=== PATIENT | female | born 1960 | race Caucasian/White ===

== ENCOUNTER 2019-05-08 11:47 | Emergency (ER) | payer BC ==
[2019-05-08] MEDS ORDERED: Ketorolac 60 MG/2 ML SDV IM ONE (12:19)
--- NOTE | 2019-05-08 12:44 | EDM.PDOC ---
ED HPI GENERAL MEDICAL PROBLEM - General Chief Complaint: Back Pain or Injury Stated Complaint: LOWER BACK PAIN Time Seen by Provider: 05/08/19 11:50 Source of Information: Reports: Patient History Limitations: Reports: No Limitations - History of Present Illness INITIAL COMMENTS - FREE TEXT/NARRATIVE: HISTORY AND PHYSICAL: History of present illness: Patient is a 58-year-old female who presents to the ED today with concern of low back pain that is been ongoing over the past month. Patient states that she has an appointment this coming week with her primary care provider, Dr. Fontenot for her back. Patient denies any trauma or injury to the back or any loss or retention of bowel and bladder function or saddle anesthesia. Patient states that she has gone to the chiropractor on several occasions which is provided some relief but is not kept the pain away for her. Patient states she's been taking aspirin but has not had relief of her symptoms. Patient states she did take one dose of her 's muscle relaxer which provided mild relief for her. Patient denies any other symptoms or concerns at this time. Patient states she has a history of hypertension but denies any other health history. Patient denies fever, chills, chest pain, shortness of breath, or cough. Denies headache, neck stiff ness, change in vision, syncope, or near syncope. Denies nausea, vomiting, abdominal pain, diarrhea, constipation, or dysuria. Has not noted any blood in urine or stool. Patient has been eating and drinking appropriately. Review of systems: As per history of present illness and below otherwise all systems reviewed and negative. Past medical history: As per history of present illness and as reviewed below otherwise noncontributory. Surgical history: As per history of present illness and as reviewed below otherwise noncontributory. Social history: See social history for further information Family history: As per history of present illness and as reviewed below otherwise noncontributory. Physical exam: General: Patient is alert, oriented, and in no acute distress. Patient sitting comfortably on exam table. HEENT: Atraumatic, normocephalic, pupils equal and reactive bilaterally, negative for conjunctival pallor or scleral icterus, mucous membranes moist, TMs normal bilaterally, throat clear, neck supple, nontender, trachea midline. No drooling or trismus noted. No meningeal signs. No hot potato voice noted. Lungs: Clear to auscultation, breath sounds equal bilaterally, chest nontender. Heart: S1S2, regular rate and rhythm without overt murmur Abdomen: Soft, nondistended, nontender. Negative for masses or hepatosplenomegaly. Negative for costovertebral tenderness. Pelvis: Stable nontender. Genitourinary: Deferred. Rectal: Deferred. Skin: Intact, warm, dry. No lesions or rashes noted. Extremities: Atraumatic, negative for cords or calf pain. Neurovascular unremarkable. SLR intact bilaterally. Patellar reflex intact bilaterally. Tip toe/heel gait intact. No obvious deformity of the complete spine. No step-offs, crepitus, or point tenderness to palpation of the spinous process of complete spine. Patient does have moderate pain with palpation of the paraspinous muscles surrounding the lumbar spine. Patient does have full range of motion of complete spine but does have moderate pain with range of motion of the lumbar spine. Neuro: Awake, alert, oriented. Cranial nerves II through XII unremarkable. Cerebellum unremarkable. Motor and sensory unremarkable throughout. Exam nonfocal. Notes: Discussed the importance for follow-up with a primary care provider. Voices understanding and is agreeable to plan of care. Denies any further questions or concerns at this time. Diagnostics: Lumbar x-ray Therapeutics: Toradol, Norflex Prescription: Diclofenac, Flexeril Impression: Low back pain Plan: 1. Rest, heat the affected area. You can apply heat 15 minutes on, 15 minutes off. 2. Tylenol as directed for pain management or discomfort. Take medication as prescribed. 3. Follow up with the primary care provider as discussed. Return to the ED as needed and as discussed. Definitive disposition and diagnosis as appropriate pending reevaluation and review of above. 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 ED EXAM, GENERAL - Physical Exam Exam: See Below (See dictation) Course - Vital Signs Last Recorded V/S: Last Vital Signs Temp 97.0 F 05/08/19 11:57 Pulse 110 H 05/08/19 11:57 Resp 18 05/08/19 11:57 BP 124/91 H 05/08/19 11:57 Pulse Ox 95 05/08/19 11:57 - Orders/Labs/Meds Meds: Medications Discontinued Medications Generic Name Dose Route Start Last Admin Trade Name Freq PRN Reason Stop Dose Admin Ketorolac Tromethamine 60 mg 05/08/19 12:19 05/08/19 12:29 Toradol IM 05/08/19 12:20 60 mg ONETIME ONE Administration Orphenadrine Citrate 60 mg 05/08/19 12:19 05/08/19 12:29 Norflex IM 05/08/19 12:20 60 mg NOW STA Administration Departure - Departure Time of Disposition: 13:00 Disposition: Home, Self-Care 01 Clinical Impression: Low back pain Qualifiers: Chronicity: unspecified Back pain laterality: unspecified Sciatica presence: without sciatica Qualified Code(s): M54.5 - Low back pain - Discharge Information Prescriptions: Cyclobenzaprine [Flexeril] 10 mg PO TID PRN #12 tab PRN Reason: Spasms Diclofenac Sodium [Voltaren] 75 mg PO BIDMEALS PRN #15 tab.cr PRN Reason: Pain Referrals: PCP,Unknown [Primary Care Provider] - Forms: ED Department Discharge Additional Instructions: The following information is given to patients seen in the emergency department who are being discharged to home. This information is to outline your options for follow-up care. We provide all patients seen in our emergency department with a follow-up referral. The need for follow-up, as well as the timing and circumstances, are variable depending upon the specifics of your emergency department visit. If you don't have a primary care physician on staff, we will provide you with a referral. We always advise you to contact your personal physician following an emergency department visit to inform them of the circumstance of the visit and for follow-up with them and/or the need for any referrals to a consulting specialist. The emergency department will also refer you to a specialist when appropriate. This referral assures that you have the opportunity for follow-up care with a specialist. All of these measure are taken in an effort to provide you with optimal care, which includes your follow-up. Under all circumstances we always encourage you to contact your private physician who remains a resource for coordinating your care. When calling for follow-up care, please make the office aware that this follow-up is from your recent emergency room visit. If for any reason you are refused follow-up, please contact the [facility] Emergency Department at and asked to speak to the emergency department charge nurse. [facility] [address] [place] [address] [address] 1. Apply warm compresses to the affected eye 5 times a day for the next 5 days. Apply medication as prescribed. 2. You can alternate ibuprofen and Tylenol as directed for pain and discomfort. 3. Follow-up with the career placement specialist and your primary care provider as discussed. Return to the ED as needed and as discussed.
--- NOTE | 2019-05-08 12:56 | CR ---
INDICATION: pain COMPARISON: None. FINDINGS: Three views of the lumbosacral spine demonstrate 5 non rib-bearing lumbar type vertebral bodies. Normal vertebral body heights and alignment. There is no evidence of acute fracture or subluxation. Mild levoconvex curvature. Moderate degenerative disc disease at L5-S1 with disc space narrowing. Sacroiliac joints are intact. Surgical clips in the right upper quadrant consistent with prior cholecystectomy. IMPRESSION: 1. No acute osseous abnormality. 2. Moderate degenerative disc disease at L5-S1. Dictated by Romie Schaffer MD @ 05/08/2019 12:56:01 PM Dictated by: Romie Schaffer MD @ 05/08/2019 12:56:08 (Electronically Signed)
== END 2019-05-08 13:19 | disposition home or self-care (01) ==
LOC: MW.ED 11:47
DX: M54.5 Low back pain (principal); I10 Essential (primary) hypertension; F41.9 Anxiety disorder, unspecified; Z88.2 Allergy status to sulfonamides; Z79.899 Other long term (current) drug therapy
CPT/HCPCS: 72100; 96372; 99283; J1885; J2360

== ENCOUNTER 2019-08-01 11:11 | Emergency (ER) | payer BC ==
--- NOTE | 2019-08-01 13:03 | EDM.PDOC ---
ED HPI GENERAL MEDICAL PROBLEM - General Chief Complaint: Lower Extremity Injury/Pain Stated Complaint: LFT KNEE PAIN Time Seen by Provider: 08/01/19 12:58 Source of Information: Reports: Patient History Limitations: Reports: No Limitations - History of Present Illness INITIAL COMMENTS - FREE TEXT/NARRATIVE: HISTORY AND PHYSICAL: History of present illness: Patient is a 58-year-old female who presents to the emergency room today with complaints of medial left knee pain. She states approximately 2 weeks ago she was getting out of the shower when she felt a "pop" to her left knee which the pain has been waxing and waning. Over the past few days the pain has progressively gotten worse and has increased pain with weightbearing. She states she has a history of an L3 fracture and has been using tramadol and Flexeril for pain management of this, does use this routinely and feels that it does help somewhat with her knee pain. States back pain is being managed by Dr Niall Fontenot, feels that it is much improved. She denies any numbness, tingling or saddle paresthesia. She denies any urinary or fecal incontinence. Patient denies any fever, chills, headache, change in vision, syncope or near syncope. Denies any chest pain, back pain, shortness of breath or cough. Denies any GI or symptoms. Patient has been eating and drinking appropriately. Review of systems: As per history of present illness and below otherwise all systems reviewed and negative. Past medical history: As per history of present illness and as reviewed below otherwise noncontributory. Surgical history: As per history of present illness and as reviewed below otherwise noncontributory. Social history: See social history for further information Family history: As per history of present illness and as reviewed below otherwise noncontributory. Physical exam: General: Developed well-nourished 58-year-old female. Alert and oriented. Nontoxic-appearing and in no acute distress. HEENT: Atraumatic, normocephalic, pupils equal and reactive bilaterally, negative for conjunctival pallor or scleral icterus, mucous membranes moist, TMs normal bilaterally, throat clear, neck supple, nontender, trachea midline. No drooling or trismus noted. No meningeal signs. No hot potato voice noted. Lungs: Clear to auscultation, breath sounds equal bilaterally, chest nontender. Heart: S1S2, regular rate and rhythm without overt murmur Abdomen: Soft, nondistended, nontender. Skin: Intact, warm, dry. No lesions or rashes noted. Extremities: Moves all extremities per self without difficulty or deficits, negative for cords or calf pain. No posterior or lateral knee pain with palpation. Negative drawer test. No knee instability noted. She does have pain with palpation of the medial knee and patella. Strong pedal pulses. Surrounding skin shows no soft tissue swelling or erythema. Neurovascular unremarkable. Neuro: Awake, alert, oriented. Cranial nerves II through XII unremarkable. Cerebellum unremarkable. Motor and sensory unremarkable throughout. Exam nonfocal. Notes: Patient was made aware of the limitations the ER has as far as obtaining an MRI today. Patient was in hope she was going to receive an MRI today, she and her are disgruntled. The is demanding that she be admitted because she "can't walk". She is able to stand and bear weight, pivot, flex and extend the knee. They are requesting admission and to be seen by an home health billing specialist. I did have Dr Schumacher involved in this case, as they are unhappy with their disposition. Supportive care measures were reviewed and discussed. Voices understanding and is agreeable to plan of care. Denies any further questions or concerns at this time. Diagnostics: X-ray Therapeutics: Crutches, Patellar Cut Out Prescription: Flintstone (#20) Impression: Left knee injury Plan: 1. Rest, ice, elevate the affected extremity. Please wear the splint as directed. 2. Tylenol and/or Ibuprofen as needed for pain management. 3. Follow up with the Orthopedic provider as we discussed. You have an appointment with Dr Cedeño tomorrow (08/02/2018) at [address] [place] [address]. 4. Return to the ED as needed and as discussed. Definitive disposition and diagnosis as appropriate pending reevaluation and review of above. Left knee Pain Score (Numeric/FACES): 4 - Related Data Allergies Allergy/AdvReac Type Severity Reaction Status Date / Time Sulfa (Sulfonamide Allergy Rash Verified 05/08/19 11:59 Antibiotics) Home Meds: Home Meds Cyclobenzaprine [Flexeril] 10 mg PO TID PRN #12 tab 05/08/19 [Rx] LORazepam 1 mg ASDIRECTED PRN 05/08/19 [History] RX: Diclofenac Sodium [Voltaren] 75 mg PO BIDMEALS PRN #15 tab.cr 05/08/19 [Rx] hydroCHLOROthiazide [Hydrochlorothiazide] 1 tab DAILY 05/08/19 [History] Acetaminophen/HYDROcodone [Flintstone 325-5 MG] 1 dose PO Q4H #20 tablet 08/01/19 [Rx ] Past Medical History Cardiovascular History: Reports: 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: Musculoskeletal History: Reports: Fracture Other Musculoskeletal History: L3 Psychiatric History: Reports: Anxiety - Infectious Disease History Infectious Disease History: Reports: Chicken Pox, Measles, Mumps - Past Surgical History HEENT Surgical History: Reports: Adenoidectomy, Tonsillectomy GI Surgical History: Reports: Appendectomy, Cholecystectomy Female Surgical History: Reports: Section, Hysterectomy, Salpingo- Oophorectomy Social & Family History - Family History Family Medical History: Noncontributory - Tobacco Use Smoking Status *Q: Never Smoker Second Hand Smoke Exposure: No - Caffeine Use Caffeine Use: Reports: None - Recreational Drug Use Recreational Drug Use: No Review of Systems - Review of Systems Review Of Systems: Comprehensive ROS is negative, except as noted in HPI. ED EXAM, GENERAL - Physical Exam Exam: See Below (See dictation) Course - Vital Signs Last Recorded V/S: Last Vital Signs Temp 98.1 F 08/01/19 14:33 Pulse 108 H 08/01/19 14:33 Resp 18 08/01/19 12:01 BP 129/92 H 08/01/19 14:33 Pulse Ox 96 08/01/19 14:33 - Orders/Labs/Meds Orders: Active Orders 24 hr Category Date Time Status DME for Discharge [COMM] Stat Oth 08/01/19 14:17 Ordered Departure - Departure Time of Disposition: 14:35 Disposition: Home, Self-Care 01 Clinical Impression: Knee injury Qualifiers: Encounter type: initial encounter Laterality: left Qualified Code(s): S89.92XA - Unspecified injury of left lower leg, initial encounter - Discharge Information Prescriptions: Acetaminophen/HYDROcodone [Flintstone 325-5 MG] 1 dose PO Q4H #20 tablet Instructions: Knee Pain, Adult Referrals: Niall Fontenot MD [Primary Care Provider] - Mark Cedeño DO [Physician] - (ThursdayAugust 02 at 9am. Please arrived at the [facility] at 0845.) Forms: ED Department Discharge Additional Instructions: The following information is given to patients seen in the emergency department who are being discharged to home. This information is to outline your options for follow-up care. We provide all patients seen in our emergency department with a follow-up referral. The need for follow-up, as well as the timing and circumstances, are variable depending upon the specifics of your emergency department visit. If you don't have a primary care physician on staff, we will provide you with a referral. We always advise you to contact your personal physician following an emergency department visit to inform them of the circumstance of the visit and for follow-up with them and/or the need for any referrals to a consulting specialist. The emergency department will also refer you to a specialist when appropriate. This referral assures that you have the opportunity for follow-up care with a specialist. All of these measure are taken in an effort to provide you with optimal care, which includes your follow-up. Under all circumstances we always encourage you to contact your private physician who remains a resource for coordinating your care. When calling for follow-up care, please make the office aware that this follow-up is from your recent emergency room visit. If for any reason you are refused follow-up, please contact the [facility] Emergency Department at and asked to speak to the emergency department charge nurse. [facility] [place] [id number] [facility] - [facility] [address] [place] [address], [address] [place] [address] 1. Rest, ice, elevate the affected extremity. Please wear the splint use the crutches/walker as directed. 2. Tylenol and/or Ibuprofen as needed for pain management. 3. Follow up with the Orthopedic provider as we discussed. You have an appointment with Dr Cedeño tomorrow (08/02/2018) at 0900 in the [facility]. Please arrived at 0845 to check-in. 4. Return to the ED as needed and as discussed. Sepsis Event Note - Evaluation Sepsis Screening Result: No Definite Risk - Focused Exam Vital Signs: Vital Signs Temp Pulse Resp BP Pulse Ox 08/01/19 14:33 98.1 F 108 H 129/92 H 96 08/01/19 12:01 98.1 F 115 H 18 131/86 97 Date Exam was Performed: 08/01/19 Time Exam was Performed: 14:35 - My Orders Last 24 Hours: My Active Orders 08/01/19 14:17 DME for Discharge [COMM] Stat - Assessment/Plan Last 24 Hours: My Active Orders 08/01/19 14:17 DME for Discharge [COMM] Stat
--- NOTE | 2019-08-01 14:31 | CR ---
Left knee: AP, lateral and sunrise patellar views left knee were obtained. 2 surgical clips are seen within the soft tissues of the medial lower extremity slightly below the knee joint. No joint effusion is seen. Minimal osteophyte is noted off the lateral patella. No fracture or other bony abnormality is seen. Joint spaces are preserved. Impression: 1. 2 soft tissue surgical clips. 2. Minimal osteophyte off the lateral patella. 3. Left knee study is otherwise unremarkable. Diagnostic code #2 This report was dictated in [place] Standard Time
== END 2019-08-01 14:50 | disposition home or self-care (01) ==
LOC: MW.ED 11:11
DX: S89.92XA Unspecified injury of left lower leg, initial encounter (principal); I10 Essential (primary) hypertension; Z88.2 Allergy status to sulfonamides; X50.9XXA Other and unspecified overexertion or strenuous movements or postures, initial encounter; Y93.89 Activity, other specified
CPT/HCPCS: 73562-26-LT; 73562-LT; 99283; 99283-25

== ENCOUNTER 2020-05-21 02:36 | Emergency (ER) | payer BC ==
[2020-05-21] MEDS ORDERED: Sodium Chloride 0.9% 2.5 ML Syringe FLUSH PRN (03:05)
[2020-05-21] MEDS ORDERED: Sodium Chloride 0.9% 10 ML Syringe FLUSH PRN (03:05)
[2020-05-21] MEDS ORDERED: Sodium Chloride 0.9% 1,000 ML IV ONE (03:07)
--- NOTE | 2020-05-21 03:08 | EDM.PDOC ---
ED HPI GENERAL MEDICAL PROBLEM - General Chief Complaint: Respiratory Problem Stated Complaint: RECENT CHEMO, TROUBLE BREATHING Time Seen by Provider: 05/21/20 02:50 - History of Present Illness INITIAL COMMENTS - FREE TEXT/NARRATIVE: History of present illness: [] Patient says she has had several days of fatigue. She has a cough. She feels short of breath intermittently. She does not really have a fever and chills. She has an adequate appetite and no vomiting or diarrhea. Had a COVID- 19 test days ago and it was negative. says she has been more than 3 weeks fatigued and had transient elevation of her liver functions for which she was given a round of Levaquin. Her oncologist is at [facility]. As the Covid test was more like 12 days ago then last week. Review of systems: As per history of present illness and below otherwise all systems reviewed and negative. Past medical history: As per history of present illness and as reviewed below otherwise noncontributory. Patient is not treated for diabetes hypertension or cholesterol. Surgical history: As per history of present illness and as reviewed below otherwise noncontributory. Social history: No reported history of drug or alcohol abuse. Patient does not smoke. Family history: As per history of present illness and as reviewed below otherwise noncontributory. Physical exam: Constitutional - well developed, well-nourished and in no acute distress HEENT - normocephalic, no evidence of trauma - external nose and mouth normal - no mass in neck and no JVD - mucosae moist EYES - full EOM, PERRL, no icterus - no evidence of inflammation, injection, or drainage Respiratory - no respiratory distress, equal bilateral expansion, lungs clear to auscultation except rales in the right base Cardiovascular - Regular Rhythm with S1 and S2 appreciated and no murmur, gallop or rub. GI - abdomen soft without distension or organomegaly - normal bowel sounds - no guard or rebound Musculoskeletal no gross deformity of long bones or joints - no tenderness, swelling or edema Neurologic - Alert and oriented times four - CN II-XII grossly intact - motor sensory and coordination symmetrically normal Psychiatric - appropriate mood and affect with normal thought content Hematologic - No petechiae or purpura - mucosa appropriate color and sclera not pale - normal nail bed color and refill Integument - no rash or evidence of trauma - normal turgor Diagnostics: [] Therapeutics: [] Impression: [] Plan: [] Definitive disposition and diagnosis as appropriate pending reevaluation and review of above. 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 MANAGER History: Reports: Musculoskeletal History: Reports: Fracture Other Musculoskeletal History: L3 Neurological History: Reports: None Psychiatric History: Reports: Anxiety Endocrine/Metabolic History: Reports: None Insulin Pump Model and Law Librarian: None Hematologic History: Reports: None Immunologic History: Reports: None Oncologic (Cancer) History: Reports: Lymphoma Dermatologic History: Reports: None - Infectious Disease History Infectious Disease History: Reports: None - Past Surgical History HEENT Surgical History: Reports: Adenoidectomy, Tonsillectomy GI Surgical History: Reports: Appendectomy, Cholecystectomy Female Surgical History: Reports: Section, Hysterectomy, Salpingo- Oophorectomy Social & Family History - Family History Family Medical History: Noncontributory - Tobacco Use Tobacco Use Status *Q: Never Tobacco User - Caffeine Use Caffeine Use: Reports: None - Recreational Drug Use Recreational Drug Use: No ED ROS GENERAL - Review of Systems Review Of Systems: Comprehensive ROS is negative, except as noted in HPI. ED EXAM, GENERAL - Physical Exam Exam: See Below Free Text/Narrative:: My physical exam as in the HPI #1 Interpretation EKG Interpretation Comments: EKG done at 3:55 AM on 05/21/2020 a.m. interpreted 0401. There is a sinus tachycardia with a heart rate of 179. MI interval is 135. QT is 473. [place] is -15. There is some nonspecific ST and T wave changes. There is also significant artifact, baseline wander, and low voltage QRS in the limb leads. There is no prior for comparison. Impression there is no obvious acute injury. Course - Vital Signs Text/Narrative:: Patient has an infiltrate in the right lower lobe that was not present on prior x-ray. That x-ray is more than 8 years ago. The patient also has positive troponin I. We do not have cardiology here and her oncologist is at [facility]. Therefore I will transfer her to [facility]. 606 the patient is basically unchanged however her troponin I is elevated slightly indicating she may have had a rather recent acute IL. Patient was discussed with Dr. Easley and Jovita and he agreed to accept the patient. She will be sent by helicopter otherwise will be a significant delay. Last Recorded V/S: Last Vital Signs Temp 96.4 F L 05/21/20 04:58 Pulse 112 H 05/21/20 04:58 Resp 22 H 05/21/20 04:58 BP 106/81 05/21/20 04:58 Pulse Ox 97 05/21/20 04:58 - Orders/Labs/Meds Orders: Active Orders 24 hr Category Date Time Status EKG Documentation Completion [RC] AM Care 05/21/20 03:05 Active Sodium Chloride 0.9% [Saline Flush] Med 05/21/20 03:05 Active 10 ml FLUSH ASDIRECTED PRN Sodium Chloride 0.9% [Saline Flush] Med 05/21/20 03:05 Active 2.5 ml FLUSH ASDIRECTED PRN Isolation [COMM] Routine Oth 05/21/20 03:06 Active Saline Lock Insert [OM.PC] Stat Oth 05/21/20 03:05 Ordered Medication Orders Sodium Chloride (Saline Flush) 10 ml FLUSH ASDIRECTED PRN PRN Reason: Keep Vein Open Sodium Chloride (Saline Flush) 2.5 ml FLUSH ASDIRECTED PRN PRN Reason: Keep Vein Open Labs: Laboratory Tests 05/21/20 05/21/20 05/21/20 Range/Units 03:05 03:05 03:25 WBC 8.81 (4.0-11.0) K/uL RBC 5.30 (4.30-5.90) M/uL Hgb 14.0 (12.0-16.0) g/dL Hct 45.4 (36.0-46.0) % MCV 85.7 (80.0-98.0) fL MCH 26.4 L (27.0-32.0) pg MCHC 30.8 L (31.0-37.0) g/dL RDW Std Deviation 58.6 (28.0-62.0) fl RDW Coeff of Jeff 19 H (11.0-15.0) % Plt Count 277 (150-400) K/uL MPV 11.30 (7.40-12.00) fL Neut % (Auto) 67.3 (48.0-80.0) % Lymph % (Auto) 17.7 (16.0-40.0) % [place] % (Auto) 13.8 (0.0-15.0) % Eos % (Auto) 1.1 (0.0-7.0) % Baso % (Auto) 0.1 (0.0-1.5) % Neut # (Auto) 5.9 H (1.4-5.7) K/uL Lymph # (Auto) 1.6 (0.6-2.4) K/uL [place] # (Auto) 1.2 H (0.0-0.8) K/uL Eos # (Auto) 0.1 (0.0-0.7) K/uL Baso # (Auto) 0.0 (0.0-0.1) K/uL Nucleated RBC % 0.0 /100WBC Nucleated RBCs # 0 K/uL Sodium 133 L (136-145) mmol/L Potassium 5.1 (3.5-5.1) mmol/L Chloride 100 (98-107) mmol/L Carbon Dioxide 17.2 L (21.0-32.0) mmol/L BUN 22 H (7.0-18.0) mg/dL Creatinine 1.2 H (0.6-1.0) mg/dL Est Cr Clr Drug Dosing 49.66 mL/min Estimated GFR (MDRD) 45.7 ml/min Glucose 124 H (74-106) mg/dL Calcium 8.7 (8.5-10.1) mg/dL Total Bilirubin 1.7 H (0.2-1.0) mg/dL AST 58 H (15-37) IU/L ALT 130 H (14-63) IU/L Alkaline Phosphatase 202 H (46-116) U/L Troponin I 0.107 H* (0.000-0.056) ng/mL Total Protein 6.4 (6.4-8.2) g/dL Albumin 3.5 (3.4-5.0) g/dL Globulin 2.9 (2.6-4.0) g/dL Albumin/Globulin Ratio 1.2 (0.9-1.6) SARS-CoV-2 RNA (KARTHIK) NEGATIVE (NEGATIVE) 05/21/20 Range/Units 05:15 WBC (4.0-11.0) K/uL RBC (4.30-5.90) M/uL Hgb (12.0-16.0) g/dL Hct (36.0-46.0) % MCV (80.0-98.0) fL MCH (27.0-32.0) pg MCHC (31.0-37.0) g/dL RDW Std Deviation (28.0-62.0) fl RDW Coeff of Jeff (11.0-15.0) % Plt Count (150-400) K/uL MPV (7.40-12.00) fL Neut % (Auto) (48.0-80.0) % Lymph % (Auto) (16.0-40.0) % [place] % (Auto) (0.0-15.0) % Eos % (Auto) (0.0-7.0) % Baso % (Auto) (0.0-1.5) % Neut # (Auto) (1.4-5.7) K/uL Lymph # (Auto) (0.6-2.4) K/uL [place] # (Auto) (0.0-0.8) K/uL Eos # (Auto) (0.0-0.7) K/uL Baso # (Auto) (0.0-0.1) K/uL Nucleated RBC % /100WBC Nucleated RBCs # K/uL Sodium (136-145) mmol/L Potassium (3.5-5.1) mmol/L Chloride (98-107) mmol/L Carbon Dioxide (21.0-32.0) mmol/L BUN (7.0-18.0) mg/dL Creatinine (0.6-1.0) mg/dL Est Cr Clr Drug Dosing mL/min Estimated GFR (MDRD) ml/min Glucose (74-106) mg/dL Calcium (8.5-10.1) mg/dL Total Bilirubin (0.2-1.0) mg/dL AST (15-37) IU/L ALT (14-63) IU/L Alkaline Phosphatase (46-116) U/L Troponin I 0.116 H* (0.000-0.056) ng/mL Total Protein (6.4-8.2) g/dL Albumin (3.4-5.0) g/dL Globulin (2.6-4.0) g/dL Albumin/Globulin Ratio (0.9-1.6) SARS-CoV-2 RNA (KARTHIK) (NEGATIVE) Meds: Medications Generic Name Dose Route Start Last Admin Trade Name Freq PRN Reason Stop Dose Admin Sodium Chloride 10 ml 05/21/20 03:05 Saline Flush FLUSH ASDIRECTED PRN Keep Vein Open Sodium Chloride 2.5 ml 05/21/20 03:05 Saline Flush FLUSH ASDIRECTED PRN Keep Vein Open Discontinued Medications Generic Name Dose Route Start Last Admin Trade Name Freq PRN Reason Stop Dose Admin Aspirin 324 mg 05/21/20 04:03 05/21/20 04:11 Aspirin PO 05/21/20 04:04 324 mg ONETIME ONE Administration Aspirin Confirm 05/21/20 04:08 05/21/20 04:26 Aspirin Administered 05/21/20 04:09 Not Given Dose 324 mg .ROUTE .STK-MED ONE Sodium Chloride 1,000 mls @ 999 mls/hr 05/21/20 03:07 05/21/20 03:30 Normal Saline IV 05/21/20 04:07 999 mls/hr .BOLUS ONE Administration Ceftriaxone Sodium/Dextrose 1 50 mls @ 100 mls/hr 05/21/20 04:39 05/21/20 05:00 gm/ Premix IV 05/21/20 05:08 100 mls/hr ONETIME ONE Administration Lorazepam 1 mg 05/21/20 05:17 05/21/20 05:27 Ativan IVPUSH 05/21/20 05:18 1 mg ONETIME ONE Administration Ondansetron HCl 4 mg 05/21/20 04:31 05/21/20 04:35 Zofran IVPUSH 05/21/20 04:32 4 mg ONETIME ONE Administration Ondansetron HCl Confirm 05/21/20 04:31 05/21/20 04:42 Zofran Administered 05/21/20 04:32 Not Given Dose 4 mg .ROUTE .STK-MED ONE Departure - Departure Time of Disposition: 06:30 Disposition: DC/Tfer to Acute Hospital 02 Clinical Impression: Fatigue, Right lower lobe pulmonary infiltrate, Dyspnea, Troponin level elevated - Discharge Information Referrals: Niall Fontenot MD [Primary Care Provider] - Forms: ED Department Discharge Sepsis Event Note (ED) - Evaluation Sepsis Screening Result: No Definite Risk - Focused Exam Vital Signs: Vital Signs Temp Pulse Resp BP Pulse Ox 05/21/20 04:58 96.4 F L 112 H 22 H 106/81 97 05/21/20 04:00 114 H 24 H 115/88 100 05/21/20 02:48 96.3 F L 118 H 24 H 118/90 100 - My Orders Last 24 Hours: My Active Orders 05/21/20 03:05 EKG Documentation Completion [RC] AM Sodium Chloride 0.9% [Saline Flush] 10 ml FLUSH ASDIRECTED PRN Sodium Chloride 0.9% [Saline Flush] 2.5 ml FLUSH ASDIRECTED PRN Saline Lock Insert [OM.PC] Stat 05/21/20 03:06 Isolation [COMM] Routine - Assessment/Plan Last 24 Hours: My Active Orders 05/21/20 03:05 EKG Documentation Completion [RC] AM Sodium Chloride 0.9% [Saline Flush] 10 ml FLUSH ASDIRECTED PRN Sodium Chloride 0.9% [Saline Flush] 2.5 ml FLUSH ASDIRECTED PRN Saline Lock Insert [OM.PC] Stat 05/21/20 03:06 Isolation [COMM] Routine
[2020-05-21 03:43] LABS: CARBON DIOXIDE,CO2 17.2 mmol/L (21.0-32.0); POTASSIUM,K 5.1 mmol/L (3.5-5.1)
--- NOTE | 2020-05-21 03:49 | CR ---
HISTORY: Shortness of breath COMPARISON: 07/07/2012 FINDINGS: A portable erect AP view of the chest was obtained at 0328 hours. There is a new mild patchy infiltrate in the right lung base, atelectasis versus pneumonia. The rest of the chest remains clear. There is a new right internal jugular infusion port with its tip in satisfactory position in the superior vena cava at the cavoatrial junction. There is no sign of pneumothorax on the right. The heart has prominently increased in size and is now mildly enlarged. It has a water bottle shaped, raising the possibility of a pericardial effusion. The osseous structures are normal in appearance for the patient`s age. IMPRESSION: New mild patchy infiltrate in the right lung base, atelectasis versus pneumonia. New mild cardiomegaly with a water bottle shaped raising the possibility of a pericardial effusion. Dictated by Esteban Hameed MD @ May 21 2020 3:43AM Signed by Dr. Esteban Hameed @ May 21 2020 3:47AM
[2020-05-21] MEDS ORDERED: Aspirin 81 MG Tab.Chew PO ONE (04:03)
[2020-05-21] MEDS ORDERED: Aspirin 81 MG Tab.Chew ONE (04:08)
[2020-05-21] MEDS ORDERED: Ondansetron 4 MG/2 ML SDV IVPUSH ONE (04:31)
[2020-05-21] MEDS ORDERED: Ondansetron 4 MG/2 ML SDV ONE (04:31)
[2020-05-21] MEDS ORDERED: cefTRIAXone 1 GM in Premix Bag 1 BAG IV ONE (04:39)
[2020-05-21] MEDS ORDERED: LORazepam 2 MG/ML SDV IVPUSH ONE (05:17)
== END 2020-05-21 07:00 ==
LOC: MW.ED 02:36
DX: R91.8 Other nonspecific abnormal finding of lung field (principal); R06.02 Shortness of breath; R79.89 Other specified abnormal findings of blood chemistry; R53.83 Other fatigue; I10 Essential (primary) hypertension; Z88.2 Allergy status to sulfonamides; Z90.49 Acquired absence of other specified parts of digestive tract; Z90.710 Acquired absence of both cervix and uterus; Z20.828 Contact with and (suspected) exposure to other viral communicable diseases
CPT/HCPCS: 36415; 71045; 80053; 84484; 85025; 87635; 87804; 93005; 96365; 96375; 99285; A9270; J0696; J2060; J2405; J7030; U0002

== ENCOUNTER 2020-05-27 15:09 | Emergency (ER) | payer BC ==
[2020-05-27] MEDS ORDERED: Sodium Chloride 0.9% 2.5 ML Syringe FLUSH PRN (15:11)
[2020-05-27] MEDS ORDERED: Sodium Chloride 0.9% 10 ML Syringe FLUSH PRN (15:11)
--- NOTE | 2020-05-27 15:13 | EDM.PDOC ---
<Herrera Solomon - Last Filed: 05/27/20 20:51> ED HPI GENERAL MEDICAL PROBLEM - General Chief Complaint: Respiratory Problem Stated Complaint: SOB Time Seen by Provider: 05/27/20 15:11 - History of Present Illness INITIAL COMMENTS - FREE TEXT/NARRATIVE: This is a 59-year-old female with a history significant for cholecystectomy, appendectomy, hysterectomy, lymphoma, status post chemotherapy with her last dose completed in December and her last dose of radiation therapy in February, who was recently diagnosed with a pulmonary embolism and has recently been discharged from [facility] after admission for pulmonary embolism resulting in cardiac arrest. Patient was discharged 2 to 3 days ago to her home on Eliquis. Patient presented to the ER today secondary to severe acute onset of shortness of breath, and a sensation that she was dying. Upon arrival to the ED, the patient had labs drawn and CT scan of the abdomen pelvis and chest ordered. Patient's labs were significant for severe anion gap metabolic acidosis, markedly elevated lactic acid, elevated LFTs, elevated WBC count. Patient had a CT scan of her abdomen pelvis with IV contrast which revealed a pulmonary embolism in her right lower lobe as well as concern for severe right-sided heart pressures with contrast noted in her inferior vena cava and in her hepatic veins. Although sepsis is a possibility, the consolation of patient symptoms and presentation appears to be most likely consistent with lactic acidosis resulting from severe right-sided heart failure from massive PE. Patient currently is hemodynamically stable and is oxygenating well. Patient blood pressure has remained stable in the ED. Patient be given supplemental O2 and appears to be more comfortable although she still feels extremely anxious and keeps repeating that she feels like she is going to . Patient is requesting that she be transferred to [facility] secondary to that is where her oncology and much of her prior medical care has been obtained. Case has been discussed with her hospitalist who agrees with need to transfer to a higher level of care. Case has been discussed with Dr. Herzog who is the ICU dispatch officer and he is agreed to accept patient for transfer. I have also discussed the case with Dr. Patel who is the customer consultant on-call at [facility] and he agrees with current plan and current transferred directly to the ICU. Patient will need to be transferred by fixed wing secondary to her current medical condition and concern regarding her respiratory status. Patient has currently taken her Eliquis. Cardiology has requested we hold off heparin at this time. Critical Care: The high probability of sudden, clinically significant deterioration in the patient's condition required the highest level of my preparedness to intervene urgently. The services I provided to this patient were to treat and/or prevent clinically significant deterioration. Services included the following: chart data review, reviewing nursing notes and/or old charts, documentation time, bilingual sales consultant collaboration regarding findings and treatment options, medication orders and management, direct patient care, vital sign assessments and ordering, interpreting and reviewing diagnostic studies/lab tests. Aggregate critical care time includes only time during which I was engaged inwork directly related to the patient's care, as described above, whether at the bedside or elsewhere in the Emergency Department. It did not include time spent performing other reported procedures or the services of residents, students, nurses or physician assistants. Critical Care Time: 35 minutes yes - Related Data Allergies Allergy/AdvReac Type Severity Reaction Status Date / Time Sulfa (Sulfonamide Allergy Rash Verified 05/27/20 15:17 Antibiotics) Home Meds: Home Meds LORazepam 1 mg PO QID PRN 05/08/19 [History] Apixaban [Eliquis] 2 tab PO BID 05/27/20 [History] Furosemide 1 tab PO BID 05/27/20 [History] Hydrocodone/Acetaminophen [[place] 10-325 Tablet] 1 tab PO Q6H PRN 05/27/20 [History] Midodrine 10 mg PO TID 05/27/20 [History] Potassium Chloride 1 packet PO BID 05/27/20 [History] #1 Interpretation EKG Interpretation Comments: Repeat EKG 8:35 PM: EKG: Normal sinus cardia heart rate of [address]-T wave abnormalities Normal axis No evidence of ST elevation [place] As interpreted by ER physician: Juanito Departure - Departure Time of Disposition: 20:49 Disposition: DC/Tfer to Acute Hospital 02 Condition: Fair Clinical Impression: Acute right-sided heart failure, Pulmonary embolism, High anion gap metabolic acidosis, Elevated troponin I level, Non-STEMI (non-ST elevated myocardial infarction) - Discharge Information Referrals: Niall Fontenot MD [Primary Care Provider] - Forms: ED Department Discharge <Otf Reyes - Last Filed: 05/28/20 07:28> ED HPI GENERAL MEDICAL PROBLEM - General Source of Information: Reports: Patient, EMS History Limitations: Reports: Other (Clinical condition) - History of Present Illness INITIAL COMMENTS - FREE TEXT/NARRATIVE: 59-year-old female past medical history lymphoma on chemotherapy, recently diagnosed pulmonary embolism on Eliquis complicated by cardiac arrest presents for shortness of breath. Patient is poor historian secondary to clinical condition. History primarily from EMS. Patient today experienced sudden onset shortness of breath prompting family to call EMS. Patient denies having chest pain, states that shortness of breath came on suddenly. She appears very anxious and keeps repeating "I am dying". Per EMS patient was found lying prone on her bed stating that she was dying. Patient was briefly able to stand for EMS. She was noted to have sinus tachycardia to 120s, normal blood pressure, normal O2 sats on room air. 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 History: Reports: Musculoskeletal History: Reports: Fracture Other Musculoskeletal History: L3 Neurological History: Reports: None Psychiatric History: Reports: Anxiety Endocrine/Metabolic History: Reports: None Insulin Pump Model and Masticator: None Hematologic History: Reports: None Immunologic History: Reports: None Oncologic (Cancer) History: Reports: Lymphoma Dermatologic History: Reports: None - Infectious Disease History Infectious Disease History: Reports: None - Past Surgical History HEENT Surgical History: Reports: Adenoidectomy, Tonsillectomy GI Surgical History: Reports: Appendectomy, Cholecystectomy Female Surgical History: Reports: Section, Hysterectomy, Salpingo- Oophorectomy Social & Family History - Family History Family Medical History: Noncontributory - Caffeine Use Caffeine Use: Reports: None ED ROS GENERAL - Review of Systems Review Of Systems: Comprehensive ROS is negative, except as noted in HPI. ED EXAM, GENERAL - Physical Exam Exam: See Below Exam Limited By: No Limitations General Appearance: Alert, WD/WN, Anxious Throat/Mouth: Normal Voice, No Airway Compromise Head: Atraumatic, Normocephalic Neck: Normal Inspection Respiratory/Chest: No Respiratory Distress, Lungs Clear, Normal Breath Sounds, No Accessory Muscle Use Cardiovascular: Normal Peripheral Pulses, Tachycardia GI/Abdominal: Soft, Non-Tender Extremities: Normal Inspection Neurological: Alert Psychiatric: Normal Affect, Normal Mood Skin Exam: Warm, Dry, Intact, Pallor #1 Interpretation EKG Date: 05/27/20 Time: 15:13 Rhythm: Other (sinus tachycardia) Rate (Beats/Min): 121 [place]: Normal P-Wave: Present QRS: Normal ST-T: Normal QT: Normal AR/PQ Interval: 140 Comparison: NA - No Prior EKG EKG Interpretation Comments: RBBB Course - Vital Signs Last Recorded V/S: Last Vital Signs Temp 95.2 F L 05/27/20 15:10 Pulse 115 H 05/27/20 20:45 Resp 24 H 05/27/20 20:45 BP 118/87 05/27/20 20:45 Pulse Ox 100 05/27/20 20:45 - Orders/Labs/Meds Orders: Active Orders 24 hr Category Date Time Status Pablo Catheter Insertion [Insert Urinary Catheter] [OM. Care 05/27/20 15:30 Ordered PC] Q24H CULTURE BLOOD [BC] Stat Lab 05/27/20 17:20 Results CULTURE BLOOD [BC] Stat Lab 05/27/20 17:23 Results OSMOLALITY - SERUM [REF] Stat Lab 05/27/20 19:57 Received Blood Culture x2 Reflex Set [OM.PC] Stat Oth 05/27/20 16:59 Ordered Saline Lock Insert [OM.PC] Stat Oth 05/27/20 15:11 Ordered Labs: Laboratory Tests 05/27/20 05/27/20 05/27/20 Range/Units 15:47 16:15 16:15 WBC 14.26 H (4.0-11.0) K/uL RBC 5.27 (4.30-5.90) M/uL Hgb 14.1 (12.0-16.0) g/dL Hct 45.3 (36.0-46.0) % MCV 86.0 (80.0-98.0) fL MCH 26.8 L (27.0-32.0) pg MCHC 31.1 (31.0-37.0) g/dL RDW Std Deviation 58.1 (28.0-62.0) fl RDW Coeff of Jeff 19 H (11.0-15.0) % Plt Count 238 (150-400) K/uL MPV 12.20 H (7.40-12.00) fL Neut % (Auto) 71.4 (48.0-80.0) % Lymph % (Auto) 15.6 L (16.0-40.0) % [place] % (Auto) 12.3 (0.0-15.0) % Eos % (Auto) 0.6 (0.0-7.0) % Baso % (Auto) 0.1 (0.0-1.5) % Neut # (Auto) 10.2 H (1.4-5.7) K/uL Lymph # (Auto) 2.2 (0.6-2.4) K/uL [place] # (Auto) 1.8 H (0.0-0.8) K/uL Eos # (Auto) 0.1 (0.0-0.7) K/uL Baso # (Auto) 0.0 (0.0-0.1) K/uL Nucleated RBC % 0.4 /100WBC Nucleated RBCs # 0 K/uL INR APTT (18.6-31.3) SEC D-Dimer, Quantitative (0.0-0.50) mg/L FEU VBG pH (7.31-7.41) VBG pCO2 (35-45) mmHG VBG pO2 (30-40) mmHG VBG HCO3 (22-30) mEq/L VBG Total CO2 (41-51) mmol/L VBG Base Excess (-3.0-3.0) Lactate 13.4 H* (0.20-2.00) mmol/L Sodium (136-145) mmol/L Potassium (3.5-5.1) mmol/L Chloride (98-107) mmol/L Carbon Dioxide (21.0-32.0) mmol/L BUN (7.0-18.0) mg/dL Creatinine (0.6-1.0) mg/dL Est Cr Clr Drug Dosing mL/min Estimated GFR (MDRD) ml/min Glucose (74-106) mg/dL POC Glucose 165 H (60-110) mg/dL Calcium (8.5-10.1) mg/dL Magnesium (1.8-2.4) mg/dL Total Bilirubin (0.2-1.0) mg/dL AST (15-37) IU/L ALT (14-63) IU/L Alkaline Phosphatase (46-116) U/L Troponin I (0.000-0.056) ng/mL C-Reactive Protein (0.00-0.90) mg/dL B-Natriuretic Peptide (<100) PG/ML Total Protein (6.4-8.2) g/dL Albumin (3.4-5.0) g/dL Globulin (2.6-4.0) g/dL Albumin/Globulin Ratio (0.9-1.6) Lipase (73-393) U/L Urine Color Urine Appearance Urine pH (5.0-8.0) Ur Specific [place] (1.001-1.035) Urine Protein (NEGATIVE) mg/dL Urine Glucose (UA) (NEGATIVE) mg/dL Urine Ketones (NEGATIVE) mg/dL Urine Occult Blood (NEGATIVE) Urine Nitrite (NEGATIVE) Urine Bilirubin (NEGATIVE) Urine Ictotest Urine Urobilinogen (<2.0) EU/dL Ur Leukocyte Esterase (NEGATIVE) U Hyaline Cast (Auto) (0-2/LPF) Urine RBC (0-2/HPF) Urine WBC (0-5/HPF) Ur Epithelial Cells (NONE-FEW) Urine Bacteria (NEGATIVE) Urine Mucus (NONE-MOD) SARS-CoV-2 RNA (KARTHIK) (NEGATIVE) 05/27/20 05/27/20 05/27/20 Range/Units 16:15 16:15 16:15 WBC (4.0-11.0) K/uL RBC (4.30-5.90) M/uL Hgb (12.0-16.0) g/dL Hct (36.0-46.0) % MCV (80.0-98.0) fL MCH (27.0-32.0) pg MCHC (31.0-37.0) g/dL RDW Std Deviation (28.0-62.0) fl RDW Coeff of Jeff (11.0-15.0) % Plt Count (150-400) K/uL MPV (7.40-12.00) fL Neut % (Auto) (48.0-80.0) % Lymph % (Auto) (16.0-40.0) % [place] % (Auto) (0.0-15.0) % Eos % (Auto) (0.0-7.0) % Baso % (Auto) (0.0-1.5) % Neut # (Auto) (1.4-5.7) K/uL Lymph # (Auto) (0.6-2.4) K/uL [place] # (Auto) (0.0-0.8) K/uL Eos # (Auto) (0.0-0.7) K/uL Baso # (Auto) (0.0-0.1) K/uL Nucleated RBC % /100WBC Nucleated RBCs # K/uL INR 3.06 APTT 24.1 (18.6-31.3) SEC D-Dimer, Quantitative 6.51 H (0.0-0.50) mg/L FEU VBG pH (7.31-7.41) VBG pCO2 (35-45) mmHG VBG pO2 (30-40) mmHG VBG HCO3 (22-30) mEq/L VBG Total CO2 (41-51) mmol/L VBG Base Excess (-3.0-3.0) Lactate (0.20-2.00) mmol/L Sodium 135 L (136-145) mmol/L Potassium 5.4 H (3.5-5.1) mmol/L Chloride 97 L (98-107) mmol/L Carbon Dioxide 17.0 L (21.0-32.0) mmol/L BUN 34 H (7.0-18.0) mg/dL Creatinine 1.4 H (0.6-1.0) mg/dL Est Cr Clr Drug Dosing 45.63 mL/min Estimated GFR (MDRD) 38.2 ml/min Glucose 127 H (74-106) mg/dL POC Glucose (60-110) mg/dL Calcium 9.0 (8.5-10.1) mg/dL Magnesium 2.4 (1.8-2.4) mg/dL Total Bilirubin 2.2 H (0.2-1.0) mg/dL AST 128 H (15-37) IU/L ALT 197 H (14-63) IU/L Alkaline Phosphatase 179 H (46-116) U/L Troponin I 0.136 H* (0.000-0.056) ng/mL C-Reactive Protein 7.60 H (0.00-0.90) mg/dL B-Natriuretic Peptide 2787 H (<100) PG/ML Total Protein 5.9 L (6.4-8.2) g/dL Albumin 3.6 (3.4-5.0) g/dL Globulin 2.3 L (2.6-4.0) g/dL Albumin/Globulin Ratio 1.6 (0.9-1.6) Lipase (73-393) U/L Urine Color Urine Appearance Urine pH (5.0-8.0) Ur Specific [place] (1.001-1.035) Urine Protein (NEGATIVE) mg/dL Urine Glucose (UA) (NEGATIVE) mg/dL Urine Ketones (NEGATIVE) mg/dL Urine Occult Blood (NEGATIVE) Urine Nitrite (NEGATIVE) Urine Bilirubin (NEGATIVE) Urine Ictotest Urine Urobilinogen (<2.0) EU/dL Ur Leukocyte Esterase (NEGATIVE) U Hyaline Cast (Auto) (0-2/LPF) Urine RBC (0-2/HPF) Urine WBC (0-5/HPF) Ur Epithelial Cells (NONE-FEW) Urine Bacteria (NEGATIVE) Urine Mucus (NONE-MOD) SARS-CoV-2 RNA (KARTHIK) (NEGATIVE) 05/27/20 05/27/20 05/27/20 Range/Units 16:15 16:25 17:37 WBC (4.0-11.0) K/uL RBC (4.30-5.90) M/uL Hgb (12.0-16.0) g/dL Hct (36.0-46.0) % MCV (80.0-98.0) fL MCH (27.0-32.0) pg MCHC (31.0-37.0) g/dL RDW Std Deviation (28.0-62.0) fl RDW Coeff of Jeff (11.0-15.0) % Plt Count (150-400) K/uL MPV (7.40-12.00) fL Neut % (Auto) (48.0-80.0) % Lymph % (Auto) (16.0-40.0) % [place] % (Auto) (0.0-15.0) % Eos % (Auto) (0.0-7.0) % Baso % (Auto) (0.0-1.5) % Neut # (Auto) (1.4-5.7) K/uL Lymph # (Auto) (0.6-2.4) K/uL [place] # (Auto) (0.0-0.8) K/uL Eos # (Auto) (0.0-0.7) K/uL Baso # (Auto) (0.0-0.1) K/uL Nucleated RBC % /100WBC Nucleated RBCs # K/uL INR APTT (18.6-31.3) SEC D-Dimer, Quantitative (0.0-0.50) mg/L FEU VBG pH 7.19 L (7.31-7.41) VBG pCO2 38 (35-45) mmHG VBG pO2 128 H (30-40) mmHG VBG HCO3 15 L (22-30) mEq/L VBG Total CO2 13 L (41-51) mmol/L VBG Base Excess -12.9 L (-3.0-3.0) Lactate (0.20-2.00) mmol/L Sodium (136-145) mmol/L Potassium (3.5-5.1) mmol/L Chloride (98-107) mmol/L Carbon Dioxide (21.0-32.0) mmol/L BUN (7.0-18.0) mg/dL Creatinine (0.6-1.0) mg/dL Est Cr Clr Drug Dosing mL/min Estimated GFR (MDRD) ml/min Glucose (74-106) mg/dL POC Glucose (60-110) mg/dL Calcium (8.5-10.1) mg/dL Magnesium (1.8-2.4) mg/dL Total Bilirubin (0.2-1.0) mg/dL AST (15-37) IU/L ALT (14-63) IU/L Alkaline Phosphatase (46-116) U/L Troponin I (0.000-0.056) ng/mL C-Reactive Protein (0.00-0.90) mg/dL B-Natriuretic Peptide (<100) PG/ML Total Protein (6.4-8.2) g/dL Albumin (3.4-5.0) g/dL Globulin (2.6-4.0) g/dL Albumin/Globulin Ratio (0.9-1.6) Lipase (73-393) U/L Urine Color YELLOW Urine Appearance CLEAR Urine pH 5.0 (5.0-8.0) Ur Specific [place] >= 1.030 (1.001-1.035) Urine Protein 30 H (NEGATIVE) mg/dL Urine Glucose (UA) NEGATIVE (NEGATIVE) mg/dL Urine Ketones NEGATIVE (NEGATIVE) mg/dL Urine Occult Blood SMALL H (NEGATIVE) Urine Nitrite NEGATIVE (NEGATIVE) Urine Bilirubin SMALL H (NEGATIVE) Urine Ictotest NEGATIVE Urine Urobilinogen 0.2 (<2.0) EU/dL Ur Leukocyte Esterase NEGATIVE (NEGATIVE) U Hyaline Cast (Auto) 0-1 (0-2/LPF) Urine RBC 1-3 (0-2/HPF) Urine WBC 0-1 (0-5/HPF) Ur Epithelial Cells RARE (NONE-FEW) Urine Bacteria FEW (NEGATIVE) Urine Mucus LIGHT (NONE-MOD) SARS-CoV-2 RNA (KARTHIK) NEGATIVE (NEGATIVE) 05/27/20 05/27/20 05/27/20 Range/Units 19:57 19:57 19:57 WBC 13.21 H (4.0-11.0) K/uL RBC 4.73 (4.30-5.90) M/uL Hgb 12.5 (12.0-16.0) g/dL Hct 40.6 (36.0-46.0) % MCV 85.8 (80.0-98.0) fL MCH 26.4 L (27.0-32.0) pg MCHC 30.8 L (31.0-37.0) g/dL RDW Std Deviation 58.3 (28.0-62.0) fl RDW Coeff of Jeff 19 H (11.0-15.0) % Plt Count 273 (150-400) K/uL MPV 11.10 (7.40-12.00) fL Neut % (Auto) 84.6 H (48.0-80.0) % Lymph % (Auto) 5.5 L (16.0-40.0) % [place] % (Auto) 9.6 (0.0-15.0) % Eos % (Auto) 0.2 (0.0-7.0) % Baso % (Auto) 0.1 (0.0-1.5) % Neut # (Auto) 11.2 H (1.4-5.7) K/uL Lymph # (Auto) 0.7 (0.6-2.4) K/uL [place] # (Auto) 1.3 H (0.0-0.8) K/uL Eos # (Auto) 0.0 (0.0-0.7) K/uL Baso # (Auto) 0.0 (0.0-0.1) K/uL Nucleated RBC % 0.0 /100WBC Nucleated RBCs # 0 K/uL INR APTT (18.6-31.3) SEC D-Dimer, Quantitative (0.0-0.50) mg/L FEU VBG pH (7.31-7.41) VBG pCO2 (35-45) mmHG VBG pO2 (30-40) mmHG VBG HCO3 (22-30) mEq/L VBG Total CO2 (41-51) mmol/L VBG Base Excess (-3.0-3.0) Lactate 12.4 H* (0.20-2.00) mmol/L Sodium 133 L (136-145) mmol/L Potassium 5.2 H (3.5-5.1) mmol/L Chloride 97 L (98-107) mmol/L Carbon Dioxide 16.2 L (21.0-32.0) mmol/L BUN 37 H (7.0-18.0) mg/dL Creatinine 1.5 H (0.6-1.0) mg/dL Est Cr Clr Drug Dosing 42.59 mL/min Estimated GFR (MDRD) 35.3 ml/min Glucose 130 H (74-106) mg/dL POC Glucose (60-110) mg/dL Calcium 8.9 (8.5-10.1) mg/dL Magnesium (1.8-2.4) mg/dL Total Bilirubin 2.2 H (0.2-1.0) mg/dL AST 123 H (15-37) IU/L ALT 171 H (14-63) IU/L Alkaline Phosphatase 158 H (46-116) U/L Troponin I 0.131 H* (0.000-0.056) ng/mL C-Reactive Protein (0.00-0.90) mg/dL B-Natriuretic Peptide (<100) PG/ML Total Protein 5.6 L (6.4-8.2) g/dL Albumin 3.2 L (3.4-5.0) g/dL Globulin 2.4 L (2.6-4.0) g/dL Albumin/Globulin Ratio 1.3 (0.9-1.6) Lipase 91 (73-393) U/L Urine Color Urine Appearance Urine pH (5.0-8.0) Ur Specific [place] (1.001-1.035) Urine Protein (NEGATIVE) mg/dL Urine Glucose (UA) (NEGATIVE) mg/dL Urine Ketones (NEGATIVE) mg/dL Urine Occult Blood (NEGATIVE) Urine Nitrite (NEGATIVE) Urine Bilirubin (NEGATIVE) Urine Ictotest Urine Urobilinogen (<2.0) EU/dL Ur Leukocyte Esterase (NEGATIVE) U Hyaline Cast (Auto) (0-2/LPF) Urine RBC (0-2/HPF) Urine WBC (0-5/HPF) Ur Epithelial Cells (NONE-FEW) Urine Bacteria (NEGATIVE) Urine Mucus (NONE-MOD) SARS-CoV-2 RNA (KARTHIK) (NEGATIVE) Meds: Medications Discontinued Medications Generic Name Dose Route Start Last Admin Trade Name Freq PRN Reason Stop Dose Admin Aspirin 324 mg 05/27/20 18:01 05/27/20 18:57 Aspirin PO 05/27/20 18:02 324 mg ONETIME ONE Administration Sodium Chloride 1,000 mls @ 999 mls/hr 05/27/20 16:58 05/27/20 17:29 Normal Saline IV 05/27/20 17:58 999 mls/hr .Bolus ONE Administration Piperacillin Sod/Tazobactam 50 mls @ 100 mls/hr 05/27/20 17:00 05/27/20 17:29 Sod 3.375 gm/ Sodium Chloride IV 05/27/20 17:29 100 mls/hr ONETIME ONE Administration Sodium Chloride 1,000 mls @ 999 mls/hr 05/27/20 18:01 05/27/20 20:41 Normal Saline IV 05/27/20 19:01 999 mls/hr .Bolus ONE Administration Iopamidol 100 ml 05/27/20 18:41 05/27/20 18:41 Isovue Multipack-370 (76%) IVPUSH 05/27/20 18:42 100 ml ONETIME ONE Administration Morphine Sulfate 4 mg 05/27/20 21:25 05/27/20 21:33 Morphine IVPUSH 05/27/20 21:26 4 mg ONETIME ONE Administration Ondansetron HCl 4 mg 05/27/20 21:25 05/27/20 21:32 Zofran IVPUSH 05/27/20 21:26 4 mg ONETIME ONE Administration Sodium Chloride 10 ml 05/27/20 15:11 05/27/20 17:30 Saline Flush FLUSH 10 ml ASDIRECTED PRN Administration Keep Vein Open Sodium Chloride 2.5 ml 05/27/20 15:11 05/27/20 17:30 Saline Flush FLUSH 2.5 ml ASDIRECTED PRN Administration Keep Vein Open - Re-Assessments/Exams Free Text/Narrative Re-Assessment/Exam: 05/27/20 15:18 Patient presents with shortness of breath, tachycardia. Complicated medical history with recently diagnosed pulmonary embolism complicated by cardiac arrest. 05/27/20 15:29 Additional history provided by at bedside now. He notes that patient's resting heart rate is around 110. He notes that symptoms started suddenly this afternoon around 1 PM. Confirmed with patient and with that she would like to be a DNR. Patient's states that she would prefer transfer to [facility] if transfer is required. Patient's notes that she is finished with chemotherapy and currently not receiving chemotherapy. 05/27/20 16:59 Labs remarkable for a lactate of 13, white count of 15. 1 L IV fluid bolus ordered. Patient does meet SIRS criteria. Zosyn ordered for broad-spectrum coverage. Blood cultures ordered. 05/27/20 17:24 Spoke with who notes that patient has an oncologist [facility] Dr. Freeman. Would like patient transferred to [facility] if possible. 05/27/20 17:40 COVID-19 test is negative 05/27/20 18:02 ABG was attempted but was a venous sample; patient remains with O2 sats 95-100% on RA so oxygenation is not as important on blood gas sample. On VBG, pH was noted to be low at 7.265, pCO2 of 36. Patient's D-dimer also markedly elevated consistent with recent PE diagnosis. Aspirin ordered for elevated troponin although low suspicion of AMI causing the elevated troponin, more likely related to pulmonary embolism. Additional 1-L IVFB ordered. Speaking with patient, she is feeling much better. She no longer feels SOB and denies ever having any pain. She does note that these symptoms started shortly after taking her new medicatiosn midodrine and eliquis and she wonders if these medications could have caused her symptoms. She remains normotensive. Will f/u CTA and disposition. Patient care will likely need to be transitioned to night ED physician pending CTA read. Sepsis Event Note (ED) - Focused Exam Vital Signs: Vital Signs Pulse Resp BP Pulse Ox 05/27/20 20:45 115 H 24 H 118/87 100 - My Orders Last 24 Hours: My Active Orders 05/27/20 15:11 Saline Lock Insert [OM.PC] Stat 05/27/20 15:30 Pablo Catheter Insertion [Insert Urinary Catheter] [OM.PC] Q24H 05/27/20 16:59 Blood Culture x2 Reflex Set [OM.PC] Stat 05/27/20 17:20 CULTURE BLOOD [BC] Stat 05/27/20 17:23 CULTURE BLOOD [BC] Stat - Assessment/Plan Last 24 Hours: My Active Orders 05/27/20 15:11 Saline Lock Insert [OM.PC] Stat 05/27/20 15:30 Pablo Catheter Insertion [Insert Urinary Catheter] [OM.PC] Q24H 05/27/20 16:59 Blood Culture x2 Reflex Set [OM.PC] Stat 05/27/20 17:20 CULTURE BLOOD [BC] Stat 05/27/20 17:23 CULTURE BLOOD [BC] Stat
--- NOTE | 2020-05-27 16:08 | CR ---
INDICATION: Dyspnea TECHNIQUE: Single view chest. Comparison chest x-ray 05/21/2020 FINDINGS: Stable enlarged cardiac silhouette right Port-A-Cath unchanged. Bibasilar hazy opacities likely reflecting small effusions. Bibasilar atelectasis and/or consolidation. No pneumothorax. Dictated by Claudine Beckett MD @ May 27 2020 4:04PM Signed by Dr. Claudine Beckett @ May 27 2020 4:06PM
[2020-05-27] MEDS ORDERED: Sodium Chloride 0.9% 1,000 ML IV ONE ×2 (16:58→18:01)
[2020-05-27 17:00] LABS: POTASSIUM,K 5.4 mmol/L (3.5-5.1)
[2020-05-27] MEDS ORDERED: Piperacillin/Tazobactam 3.375 GM in Sodium Chloride 0.9% 50 ML IV ONE (17:00)
[2020-05-27] MEDS ORDERED: Aspirin 81 MG Tab.Chew PO ONE (18:01)
[2020-05-27] MEDS ORDERED: Iopamidol 755 MG/ML 500 ML Multipack Bottle IVPUSH ONE (18:41)
--- NOTE | 2020-05-27 19:13 | CT ---
INDICATION: Known pulmonary embolism, dyspnea, tachycardia, elevated troponin TECHNIQUE: CT chest pulmonary PE protocol acquired with 100 cc Isovue 370 IV contrast. COMPARISON: None FINDINGS: Cardiovascular structures: Suboptimal opacification of the pulmonary arteries. Pulmonary embolism cannot be excluded with this exam. Cardiomegaly. No sign of aneurysm in the thoracic aorta. Mediastinum and amie: No mass or adenopathy. Small hiatal hernia. Lungs: Compressive atelectasis at both lung bases. Pleura and pericardium: Moderate right and small to moderate left simple, free-flowing pleural effusions. Chest wall and axilla: No mass or adenopathy. Upper abdomen: Small amount of ascites. Anasarca. Bones: Thoracic spine scoliosis. Postsurgical changes in the lower thoracic spine. IMPRESSION: Suboptimal opacification of the pulmonary arteries. Pulmonary embolism cannot be excluded with this exam. Moderate right and small to moderate left simple, free-flowing pleural effusions. Anasarca and small amount of ascites. Cardiomegaly. Small hiatal hernia. Please note that all CT scans at this facility use dose modulation, iterative reconstruction, and/or weight-based dosing when appropriate to reduce radiation dose to as low as reasonably achievable. Dictated by Marley Gaffney MD @ May 27 2020 7:05PM Signed by Dr. Marley Gaffney @ May 27 2020 7:11PM
--- NOTE | 2020-05-27 19:17 | CT ---
INDICATION: Patient with known PE ; dyspnea; tachycardia and elevated troponin; leukocytosis and abdominal pain. COMPARISON: CT chest with intravenous contrast 05/27/2020. TECHNIQUE: CT abdomen and pelvis with intravenous contrast; coronal and sagittal reformats. FINDINGS: Significant respiratory motion compromising the quality of the study. Large bilateral pleural effusion with compression atelectasis lower lobe right lung. Evidence of acute PE in the lower lobe pulmonary artery right lung slice 6 series 501. Cardiomegaly. No focal hepatic or splenic pathology. No pancreatic pathology.status post cholecystectomy. No adrenal pathology. No kidneys stones or obstructive uropathy. No retroperitoneal lymphadenopathy. Anasarca. Small amount of free fluid in the pelvic peritoneal cavity. Postop changes lower lumbar spine. Pablo catheter in place . Impression: Significant respiratory motion compromising the quality of the study. 1. Evidence of PE lower lobe right lung. 2. Elevated right heart pressure with reflux of contrast into the inferior vena cava and hepatic veins. 3. Anasarca. 4. Abdominal and pelvic ascites. 5. Pablo catheter in place. Please note that all CT scans at this facility use dose modulation, iterative reconstruction, and/or weight-based dosing when appropriate to reduce radiation dose to as low as reasonably achievable. Dictated by Belinda Max MD @ May 27 2020 7:10PM Signed by Dr. Belinda Max @ May 27 2020 7:17PM
[2020-05-27 20:36] LABS: CARBON DIOXIDE,CO2 16.2 mmol/L (21.0-32.0); POTASSIUM,K 5.2 mmol/L (3.5-5.1)
[2020-05-27] MEDS ORDERED: Morphine 4 MG/ML Syringe IVPUSH ONE (21:25)
[2020-05-27] MEDS ORDERED: Ondansetron 4 MG/2 ML SDV IVPUSH ONE (21:25)
== END 2020-05-27 22:00 ==
LOC: MW.ED 15:09
DX: I26.99 Other pulmonary embolism without acute cor pulmonale (principal); I21.4 Non-ST elevation (NSTEMI) myocardial infarction; I50.811 Acute right heart failure; E87.2 Acidosis; R79.89 Other specified abnormal findings of blood chemistry; F41.9 Anxiety disorder, unspecified; Z88.2 Allergy status to sulfonamides; Z90.49 Acquired absence of other specified parts of digestive tract; Z90.710 Acquired absence of both cervix and uterus; Z79.899 Other long term (current) drug therapy
CPT/HCPCS: 36415; 71045; 71275; 74177; 80053; 81001; 82803; 82962; 83605; 83690; 83735; 83880; 83930; 84484; 85025; 85379; 85610; 85730; 86140; 87040; 87635; 93005; 96365; 96375; 99285; A9270; J2270; J2405; J2543; J7030; J7050; Q9967; 99291; U0002

== ENCOUNTER 2020-06-04 20:35 | Emergency (ER) | payer BC ==
--- NOTE | 2020-06-04 21:15 | EDM.PDOC ---
ED HPI GENERAL MEDICAL PROBLEM - General Chief Complaint: General Stated Complaint: LOW BLOOD PRESSURE Time Seen by Provider: 06/04/20 21:03 Source of Information: Reports: Patient History Limitations: Reports: No Limitations - History of Present Illness INITIAL COMMENTS - FREE TEXT/NARRATIVE: Patient is a 59-year-old female with history of lymphoma. Patient presents today because her blood pressure was low at home. When patient arrived here blood pressure was in her normal range. Patient has no fever chills nausea vomiting. Patient was diagnosed with heart failure and started on lactone metoprolol lisinopril she did not take enough medication today due to her blood pressure being low at home. Patient denies any chest pain shortness of breath or leg swelling. - Related Data Allergies Allergy/AdvReac Type Severity Reaction Status Date / Time Sulfa (Sulfonamide Allergy Rash Verified 06/04/20 20:43 Antibiotics) Home Meds: Home Meds Furosemide 1 tab PO BID 05/27/20 [History] Hydrocodone/Acetaminophen [[place] 10-325 Tablet] 1 tab PO Q6H PRN 05/27/20 [History] Cyclobenzaprine [Flexeril] 10 mg PO TID PRN 06/04/20 [History] Enoxaparin [Lovenox] 60 mg SQ BID 06/04/20 [History] LORazepam [Ativan] 1 mg PO QID PRN 06/04/20 [History] Metoprolol Succinate [Toprol XL] 12.5 mg PO DAILY 06/04/20 [History] Polyethylene Glycol [Polyox Wsr-301] 17 g PO DAILY 06/04/20 [History] Spironolactone [Aldactone] 12.5 mg PO DAILY 06/04/20 [History] Sucralfate 1 g PO QID PRN 06/04/20 [History] lisinopriL [Lisinopril] 5 mg PO DAILY 06/04/20 [History] Past Medical History HEENT History: Reports: None Cardiovascular History: Reports: 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 Other Cardiovascular History: coded Respiratory History: Reports: None Gastrointestinal History: Reports: None Genitourinary History: Reports: None LARD BLEACHER History: Reports: Musculoskeletal History: Reports: Fracture Other Musculoskeletal History: L3 Neurological History: Reports: None Psychiatric History: Reports: Anxiety Endocrine/Metabolic History: Reports: None Insulin Pump Model and Bi Report Developer: None Hematologic History: Reports: None Immunologic History: Reports: None Oncologic (Cancer) History: Reports: Lymphoma Dermatologic History: Reports: None - Infectious Disease History Infectious Disease History: Reports: Chicken Pox, Mumps, Rubella, Shingles - Past Surgical History HEENT Surgical History: Reports: Adenoidectomy, Tonsillectomy GI Surgical History: Reports: Appendectomy, Cholecystectomy Female Surgical History: Reports: Section, Hysterectomy, Salpingo- Oophorectomy Social & Family History - Family History Family Medical History: Noncontributory - Caffeine Use Caffeine Use: Reports: None - Recreational Drug Use Recreational Drug Use: No ED ROS GENERAL - Review of Systems Review Of Systems: Comprehensive ROS is negative, except as noted in HPI. Constitutional: Reports: No Symptoms HEENT: Reports: No Symptoms Respiratory: Reports: No Symptoms Cardiovascular: Reports: No Symptoms Endocrine: Reports: No Symptoms GI/Abdominal: Reports: No Symptoms : Reports: No Symptoms Musculoskeletal: Reports: No Symptoms Skin: Reports: No Symptoms Neurological: Reports: No Symptoms Psychiatric: Reports: No Symptoms Hematologic/Lymphatic: Reports: No Symptoms Immunologic: Reports: No Symptoms ED EXAM, GENERAL - Physical Exam Exam: See Below Exam Limited By: No Limitations General Appearance: Alert, No Apparent Distress Eye Exam: Bilateral Eye: EOMI, PERRL Respiratory/Chest: No Respiratory Distress, Lungs Clear Cardiovascular: Regular Rate, Rhythm GI/Abdominal: Normal Bowel Sounds Neurological: Alert, Oriented, CN II-XII Intact, Normal Cognition, Normal Gait Course - Vital Signs Last Recorded V/S: Last Vital Signs Temp 96.3 F L 06/04/20 20:46 Pulse 113 H 06/04/20 20:46 Resp 18 06/04/20 20:46 BP 109/81 06/04/20 20:46 Pulse Ox 96 06/04/20 20:46 Orthostatic Blood Pressure [ 109/81 Standing] Orthostatic Blood Pressure [ 108/83 Sitting] Orthostatic Blood Pressure [ 109/78 Supine] - Orders/Labs/Meds Labs: Laboratory Tests 06/04/20 06/04/20 Range/Units 21:43 21:43 WBC 8.07 (4.0-11.0) K/uL RBC 5.33 (4.30-5.90) M/uL Hgb 13.9 (12.0-16.0) g/dL Hct 44.6 (36.0-46.0) % MCV 83.7 (80.0-98.0) fL MCH 26.1 L (27.0-32.0) pg MCHC 31.2 (31.0-37.0) g/dL RDW Std Deviation 55.3 (28.0-62.0) fl RDW Coeff of Jeff 18 H (11.0-15.0) % Plt Count 273 (150-400) K/uL MPV 11.10 (7.40-12.00) fL Neut % (Auto) 66.5 (48.0-80.0) % Lymph % (Auto) 16.4 (16.0-40.0) % Grainger % (Auto) 14.1 (0.0-15.0) % Eos % (Auto) 2.9 (0.0-7.0) % Baso % (Auto) 0.1 (0.0-1.5) % Neut # (Auto) 5.4 (1.4-5.7) K/uL Lymph # (Auto) 1.3 (0.6-2.4) K/uL Grainger # (Auto) 1.1 H (0.0-0.8) K/uL Eos # (Auto) 0.2 (0.0-0.7) K/uL Baso # (Auto) 0.0 (0.0-0.1) K/uL Nucleated RBC % 0.0 /100WBC Nucleated RBCs # 0 K/uL Sodium 135 L (136-145) mmol/L Potassium 4.2 (3.5-5.1) mmol/L Chloride 97 L (98-107) mmol/L Carbon Dioxide 32.0 (21.0-32.0) mmol/L BUN 21 H (7.0-18.0) mg/dL Creatinine 1.1 H (0.6-1.0) mg/dL Est Cr Clr Drug Dosing 51.53 mL/min Estimated GFR (MDRD) 50.5 ml/min Glucose 117 H (74-106) mg/dL Calcium 10.0 (8.5-10.1) mg/dL Meds: Medications Discontinued Medications Generic Name Dose Route Start Last Admin Trade Name Freq PRN Reason Stop Dose Admin Acetaminophen 650 mg 06/04/20 21:18 06/04/20 21:44 Tylenol Extra Strength PO 06/04/20 21:19 Not Given ONETIME ONE Diphenhydramine HCl 25 mg 06/04/20 21:18 06/04/20 21:44 Benadryl IVPUSH 06/04/20 21:19 Not Given ONETIME ONE Metoclopramide HCl 10 mg 06/04/20 21:18 06/04/20 21:44 Reglan IVPUSH 06/04/20 21:19 Not Given ONETIME ONE Departure - Departure Time of Disposition: 22:09 Disposition: Home, Self-Care 01 Condition: Good Clinical Impression: Low blood pressure - Discharge Information *PRESCRIPTION DRUG MONITORING PROGRAM REVIEWED*: Not Applicable *COPY OF PRESCRIPTION DRUG MONITORING REPORT IN PATIENT SHERRI: Not Applicable Instructions: Hypotension, [id number] Referrals: Niall Fontenot MD [Primary Care Provider] - Forms: ED Department Discharge Additional Instructions: The following information is given to patients seen in the emergency department who are being discharged to home. This information is to outline your options for follow-up care. We provide all patients seen in our emergency department with a follow-up referral. The need for follow-up, as well as the timing and circumstances, are variable depending upon the specifics of your emergency department visit. If you don't have a primary care physician on staff, we will provide you with a referral. We always advise you to contact your personal physician following an emergency department visit to inform them of the circumstance of the visit and for follow-up with them and/or the need for any referrals to a consulting specialist. The emergency department will also refer you to a specialist when appropriate. This referral assures that you have the opportunity for follow-up care with a specialist. All of these measure are taken in an effort to provide you with optimal care, which includes your follow-up. Under all circumstances we always encourage you to contact your private physician who remains a resource for coordinating your care. When calling for follow-up care, please make the office aware that this follow-up is from your recent emergency room visit. If for any reason you are refused follow-up, please contact the [facility] Emergency Department at and asked to speak to the emergency department charge nurse. Please follow up with your primary care physician. If you do not have a primary care physician, see below: [facility] [address] [place], [place] [id number] [facility] [address] [place] [address] Sepsis Event Note (ED) - Evaluation Sepsis Screening Result: No Definite Risk - Focused Exam Vital Signs: Vital Signs Temp Pulse Resp BP Pulse Ox 06/04/20 20:46 96.3 F L 113 H 18 109/81 96 - Assessment/Plan Plan: Patient is a 59-year-old female who presents today with low blood pressure at home. Patient blood pressures been stable here. Patient states she has been have some problems with her blood pressure monitor. Patient denies any symptoms. Patient was no she started blood pressure medication. We could patient her blood pressure already being low to policyholder want to speak to her control director blood pressure meds or also to help her with her heart failure. Patient had basic labs that were reviewed. Patient is stable for discharge home. Patient is also upset that her would not let back in the ER due to Covid precautions. Patient does not want to stay to have any further work-up done. Due to patient has been normal blood pressure being normal feel comfortable discharging patient in the morning.
[2020-06-04] MEDS ORDERED: diphenhydrAMINE 50 MG/ML SDV IVPUSH ONE (21:18)
[2020-06-04] MEDS ORDERED: Acetaminophen 500 MG Tab PO ONE (21:18)
[2020-06-04] MEDS ORDERED: Metoclopramide 10 MG/2 ML SDV IVPUSH ONE (21:18)
[2020-06-04 22:06] LABS: POTASSIUM,K 4.2 mmol/L (3.5-5.1)
== END 2020-06-04 22:35 | disposition home or self-care (01) ==
LOC: MW.ED 20:35
DX: I95.9 Hypotension, unspecified (principal); I50.9 Heart failure, unspecified; F41.9 Anxiety disorder, unspecified; Z88.2 Allergy status to sulfonamides; Z79.899 Other long term (current) drug therapy
CPT/HCPCS: 36415; 80048; 85025; 99284

== ENCOUNTER 2022-09-17 14:25 | Emergency (ER) | payer BC ==
[2022-09-17] MEDS ORDERED: Sodium Chloride 0.9% 2.5 ML Syringe FLUSH PRN (14:55)
[2022-09-17] MEDS ORDERED: Sodium Chloride 0.9% 10 ML Syringe FLUSH PRN (14:55)
[2022-09-17 15:54] LABS: CARBON DIOXIDE,CO2 21.5 mmol/L (21.0-32.0)
== END 2022-09-17 17:06 | disposition home or self-care (01) ==
LOC: MW.ED 14:25
DX: R47.89 Other speech disturbances (principal); I10 Essential (primary) hypertension; Z88.2 Allergy status to sulfonamides; Z79.01 Long term (current) use of anticoagulants; Z79.899 Other long term (current) drug therapy
CPT/HCPCS: 36415; 70450; 71045; 80053; 83690; 83735; 84484; 85025; 85610; 99285; J3490

== ENCOUNTER 2022-10-22 21:14 | Emergency (ER) | payer BC ==
[2022-10-22] MEDS ORDERED: Sodium Chloride 0.9% 1,000 ML IV ONE (21:39)
[2022-10-22] MEDS ORDERED: Sodium Chloride 0.9% 10 ML Syringe FLUSH PRN (21:39)
[2022-10-22] MEDS ORDERED: Sodium Chloride 0.9% 2.5 ML Syringe FLUSH PRN (21:39)
[2022-10-22 22:43] LABS: CARBON DIOXIDE,CO2 25.6 mmol/L (21.0-32.0); POTASSIUM,K 3.6 mmol/L (3.5-5.1)
[2022-10-22 22:50] LABS: CORONAVIRUS COVID-19 NAA NEGATIVE (NEGATIVE); INFLUENZA A NAA NEGATIVE (NEGATIVE); INFLUENZA B NAA NEGATIVE (NEGATIVE)
[2022-10-22] MEDS ORDERED: Iopamidol 755 MG/ML 500 ML Multipack Bottle IVPUSH STA (23:15)
== END 2022-10-23 00:36 | disposition home or self-care (01) ==
LOC: MW.ED 21:14
DX: R00.0 Tachycardia, unspecified (principal); R18.8 Other ascites; I11.0 Hypertensive heart disease with heart failure; I50.9 Heart failure, unspecified; I27.20 Pulmonary hypertension, unspecified; Z88.2 Allergy status to sulfonamides; Z79.899 Other long term (current) drug therapy; Z20.822 Contact with and (suspected) exposure to COVID-19
CPT/HCPCS: 0240U; 36415; 71275; 80053; 81001; 83735; 83880; 84443; 84484; 85025; 85610; 93005; 96360; 99285; J3490; J7030; Q9967

== ENCOUNTER 2022-12-04 01:29 | Inpatient (IN) | payer BC ==
[2022-12-04] MEDS ORDERED: Morphine 4 MG/ML Syringe IVPUSH ONE (01:52)
[2022-12-04] MEDS ORDERED: LORazepam 2 MG/ML SDV IVPUSH ONE (01:52)
[2022-12-04] MEDS: LORazepam 2 MG/ML SDV IVPUSH PRN ×4 (03:29→21:13)
[2022-12-04] MEDS: Morphine 4 MG/ML Syringe IVPUSH PRN ×4 (03:40→16:08)
[2022-12-04] MEDS: Haloperidol Lactate 5 MG/ML SDV IM PRN (15:42)
[2022-12-05] MEDS: LORazepam 2 MG/ML SDV IVPUSH PRN ×4 (02:35→08:53)
[2022-12-05] MEDS: Morphine 4 MG/ML Syringe IVPUSH PRN ×4 (03:14→15:54)
[2022-12-05] MEDS: Haloperidol Lactate 5 MG/ML SDV IM PRN (04:08)
[2022-12-05] MEDS ORDERED: Haloperidol Lactate 2 MG/ML Oral Soln 15 ML Bottle SL PRN (09:48)
[2022-12-05] MEDS ORDERED: Furosemide 40 MG/4 ML VIAL IVPUSH ONE (09:56)
[2022-12-05] MEDS: Morphine 10 MG/0.5 ML Oral Syringe PO PRN ×4 (10:31→14:34)
[2022-12-05] MEDS: LORazepam ORAL Concentrate 1MG/0.5ML U/D PO PRN ×3 (11:00→15:16)
[2022-12-05] MEDS: Haloperidol Lactate 2 MG/ML Oral Soln 15 ML Bottle PO PRN (11:56)
[2022-12-05] MEDS ORDERED: Morphine 2 MG/ML SYRINGE IVPUSH SCH (16:45)
[2022-12-05] MEDS: OLANZapine 10 MG Vial IM SCH (17:43)
[2022-12-05] MEDS: Morphine Sulfate in 0.9 % NaCl 50 MG/50 ML PCA Bag IV SCH (18:02)
[2022-12-06] MEDS: OLANZapine 10 MG Vial IM SCH ×2 (05:02→17:44)
[2022-12-06] MEDS: Haloperidol Lactate 2 MG/ML Oral Soln 15 ML Bottle PO PRN (10:13)
[2022-12-06] MEDS: LORazepam ORAL Concentrate 1MG/0.5ML U/D PO PRN ×3 (10:39→21:03)
[2022-12-06] MEDS: Morphine 4 MG/ML Syringe IVPUSH PRN ×3 (12:12→21:04)
[2022-12-06] MEDS: Morphine Sulfate in 0.9 % NaCl 50 MG/50 ML PCA Bag IV SCH (18:06)
[2022-12-07] MEDS: Morphine 4 MG/ML Syringe IVPUSH PRN ×4 (04:17→21:05)
[2022-12-07] MEDS: OLANZapine 5 MG Tab.DIS PO SCH ×2 (04:46→16:37)
[2022-12-07] MEDS ORDERED: OLANZapine 5 MG Tab.DIS PO SCH (05:00)
[2022-12-07] MEDS: LORazepam ORAL Concentrate 1MG/0.5ML U/D PO PRN ×3 (05:13→20:41)
[2022-12-07] MEDS: Haloperidol Lactate 2 MG/ML Oral Soln 15 ML Bottle PO PRN ×2 (09:12→16:36)
[2022-12-07] MEDS: Morphine Sulfate in 0.9 % NaCl 50 MG/50 ML PCA Bag IV SCH (17:41)
[2022-12-08] MEDS: LORazepam ORAL Concentrate 1MG/0.5ML U/D PO PRN ×3 (01:48→13:50)
[2022-12-08] MEDS: Morphine 4 MG/ML Syringe IVPUSH PRN ×4 (02:08→15:17)
[2022-12-08] MEDS: OLANZapine 5 MG Tab.DIS PO SCH ×2 (05:16→17:51)
[2022-12-08] MEDS: Morphine Sulfate in 0.9 % NaCl 50 MG/50 ML PCA Bag IV SCH ×2 (14:50→16:33)
[2022-12-08] MEDS ORDERED: HYDROmorphone 2 MG/ML Syringe IVPUSH PRN (15:41)
[2022-12-08] MEDS: Polyethylene Glycol 3350 Powder 17 GM Packet PO SCH (15:59)
[2022-12-08] MEDS: LORazepam 2 MG/ML SDV IVPUSH PRN ×2 (16:01→19:37)
[2022-12-09] MEDS: LORazepam 2 MG/ML SDV IVPUSH PRN ×5 (01:30→19:58)
[2022-12-09] MEDS: Morphine Sulfate in 0.9 % NaCl 50 MG/50 ML PCA Bag IV SCH ×3 (01:38→22:08)
[2022-12-09] MEDS: OLANZapine 5 MG Tab.DIS PO SCH ×2 (06:45→17:26)
[2022-12-09] MEDS: Polyethylene Glycol 3350 Powder 17 GM Packet PO SCH (09:38)
[2022-12-09] MEDS: Morphine 4 MG/ML Syringe IVPUSH PRN ×3 (13:28→19:11)
[2022-12-10] MEDS: OLANZapine 5 MG Tab.DIS PO SCH ×2 (05:37→17:05)
[2022-12-10] MEDS: Morphine Sulfate in 0.9 % NaCl 50 MG/50 ML PCA Bag IV SCH ×4 (08:14→19:35)
[2022-12-10] MEDS: LORazepam 2 MG/ML SDV IVPUSH PRN (09:01)
[2022-12-10] MEDS: Polyethylene Glycol 3350 Powder 17 GM Packet PO SCH (09:07)
[2022-12-10] MEDS ORDERED: LORazepam 2 MG/ML SDV IVPUSH PRN (10:03)
[2022-12-10] MEDS: Morphine 4 MG/ML Syringe IVPUSH PRN ×2 (10:17→12:24)
[2022-12-10] MEDS ORDERED: LORazepam 2 MG/ML SDV IVPUSH ONE (12:33)
[2022-12-10] MEDS ORDERED: Midazolam HCl In 0.9 % NaCl/Pf 100 ML IV SCH ×2 (12:46→15:30)
[2022-12-11] MEDS: Morphine Sulfate in 0.9 % NaCl 50 MG/50 ML PCA Bag IV SCH ×5 (00:35→20:40)
[2022-12-11] MEDS: OLANZapine 5 MG Tab.DIS PO SCH (04:55)
[2022-12-11] MEDS: Morphine 4 MG/ML Syringe IVPUSH PRN ×2 (08:59→12:58)
[2022-12-11] MEDS: Polyethylene Glycol 3350 Powder 17 GM Packet PO SCH (11:07)
[2022-12-11] MEDS: Midazolam HCl In 0.9 % NaCl/Pf 100 ML IV SCH (11:51)
[2022-12-11] MEDS ORDERED: Midazolam 1 MG/ML 2 ML SDV IVPUSH ONE ×2 (13:10→13:25)
[2022-12-11] MEDS ORDERED: Scopolamine 1.5 MG Transdermal Patch TOP ONE (18:40)
[2022-12-12] MEDS: Morphine Sulfate in 0.9 % NaCl 50 MG/50 ML PCA Bag IV SCH ×5 (01:42→21:56)
[2022-12-12] MEDS: Midazolam HCl In 0.9 % NaCl/Pf 100 ML IV SCH (06:39)
[2022-12-12] MEDS: Polyethylene Glycol 3350 Powder 17 GM Packet PO SCH (11:45)
[2022-12-13] MEDS: Morphine Sulfate in 0.9 % NaCl 50 MG/50 ML PCA Bag IV SCH ×4 (02:56→20:15)
[2022-12-13] MEDS: Polyethylene Glycol 3350 Powder 17 GM Packet PO SCH (11:08)
[2022-12-13] MEDS: Midazolam HCl In 0.9 % NaCl/Pf 100 ML IV SCH (15:57)
[2022-12-14] MEDS: Morphine Sulfate in 0.9 % NaCl 50 MG/50 ML PCA Bag IV SCH ×6 (01:18→21:51)
[2022-12-14] MEDS: Morphine 4 MG/ML Syringe IVPUSH PRN (01:34)
[2022-12-14] MEDS: Polyethylene Glycol 3350 Powder 17 GM Packet PO SCH (08:57)
[2022-12-14] MEDS: Midazolam HCl In 0.9 % NaCl/Pf 100 ML IV SCH (17:40)
[2022-12-15] MEDS: Morphine Sulfate in 0.9 % NaCl 50 MG/50 ML PCA Bag IV SCH ×7 (01:14→22:06)
[2022-12-15] MEDS: Polyethylene Glycol 3350 Powder 17 GM Packet PO SCH (09:07)
[2022-12-15] MEDS: Morphine 4 MG/ML Syringe IVPUSH PRN (11:32)
[2022-12-15] MEDS: Midazolam HCl In 0.9 % NaCl/Pf 100 ML IV SCH (19:25)
[2022-12-16] MEDS: Morphine Sulfate in 0.9 % NaCl 50 MG/50 ML PCA Bag IV SCH ×3 (01:21→08:12)
[2022-12-16] MEDS: Morphine 4 MG/ML Syringe IVPUSH PRN (09:56)
[2022-12-16] MEDS: Polyethylene Glycol 3350 Powder 17 GM Packet PO SCH (11:37)
== END 2022-12-16 12:43 | disposition expired | DRG 862 ==
LOC: MW.ED 01:29 → MW.MS 02:41 → OBSVTOIN 11:46
PROVIDERS: ADMIT Internal Medicine; ATTEND Internal Medicine
DX: Z51.5 Encounter for palliative care (principal); R45.1 Restlessness and agitation; R52 Pain, unspecified; R06.00 Dyspnea, unspecified; F41.9 Anxiety disorder, unspecified; I11.0 Hypertensive heart disease with heart failure; Z66 Do not resuscitate; I42.9 Cardiomyopathy, unspecified; I42.7 Cardiomyopathy due to drug and external agent; I50.9 Heart failure, unspecified; T45.1X5A Adverse effect of antineoplastic and immunosuppressive drugs, initial encounter; I46.9 Cardiac arrest, cause unspecified; Z88.2 Allergy status to sulfonamides; Z79.01 Long term (current) use of anticoagulants; Z90.49 Acquired absence of other specified parts of digestive tract; Z90.710 Acquired absence of both cervix and uterus; Z98.890 Other specified postprocedural states; Z85.72 Personal history of non-Hodgkin lymphomas; Z86.711 Personal history of pulmonary embolism; Z79.899 Other long term (current) drug therapy
CPT/HCPCS: 51702; 96374; 96375; 96376; 99223; 99233; 99239; 99285; 99285-25; A9270-GY; G0378; J1630; J1940; J2060; J2251; J2270; J2405; J3490